=== PATIENT | male | born 1960 | race Caucasian/White ===

== ENCOUNTER 2020-10-26 18:28 | Emergency (ER) | payer BC, SELFPAY ==
[2020-10-26 18:36] VITALS: BP 164/90; PULSE 88; RESP 16; O2SAT 97; BMI 22.1
--- NOTE | 2020-10-26 18:54 | ECG_ITS ---
Test Reason : OD Blood Pressure : / mmHG Vent. Rate : 089 BPM Atrial Rate : 089 BPM P-R Int : 156 ms QRS Dur : 094 ms QT Int : 358 ms P-R-T Axes : 071 053 054 degrees QTc Int : 435 ms Normal sinus rhythm Possible Left atrial enlargement Borderline ECG When compared with ECG of 21-JUL-2011 14:09, No significant change was found Referred By: Caroline Torres Electronically Signed By:Freeman Temple
[2020-10-26 19:11] LABS: MANUAL DIFF FLAG NO
[2020-10-26 19:14] LABS: Basophils Percent Auto 0.3 % (0-2); Eosinophils Absolute Auto 0.2 X10*3/uL (0.0-0.4); Eosinophils Percent Auto 1.8 % (0-4); Hemoglobin 14.5 g/dl (14.0-18.0); Imm Gran Abs Auto 0.04 X10*3/uL (0.00-0.03); Imm Gran Pct Auto 0.4 % (0.0-0.4); Lymphocytes Absolute Auto 3.4 X10*3/uL (1.2-4.9); Lymphocytes Percent Auto 31.7 % (20-40); Mean Corpuscular HGB Conc 34.5 g/dl (31.0-36.0); Mean Corpuscular Volume 98.4 fL (80-98); Mean Platelet Volume 9.2 fL (9.4-12.4); Monocytes Absolute Auto 0.6 X10*3/uL (0.1-1.2); Monocytes Percent Auto 5.9 % (2-11); Neutrophils Absolute Auto 6.4 X10*3/uL (2.0-8.3); Neutrophils Percent Auto 59.9 % (45-73); Platelet Count 212 X10*3/uL (160-400); Red Blood Count 4.27 X10*6/uL (4.60-5.80); Red Cell Distribution Width 12.9 % (11.0-16.0); White Blood Count 10.6 X10*3/uL (4.8-10.8)
[2020-10-26 19:36] LABS: Ethanol 67 mg/dL
[2020-10-26 19:40] LABS: Alanine Aminotransferase 57 U/L (0-40); Albumin Level 4.5 g/dL (3.5-5.0); Alkaline Phosphatase 116 U/L (39-117); Anion Gap 14 (12-20); Aspartate Amino Transferase 42 U/L (5-37); Bilirubin Total 0.4 mg/dL (0.0-1.0); Blood Urea Nitrogen 19 mg/dL (9-16); Calcium 9.4 mg/dL (8.4-10.2); Carbon Dioxide 27 mmol/L (22-29); Chloride 102 mmol/L (96-108); Creatinine Clr Calc Pharmacy 68.7; Estimated Glomerular Filt Rate > 60; Glucose Random 133 mg/dL (60-115); Salicylate < 5.0 mg/dL (15-30); Sodium 139 mmol/L (135-145)
[2020-10-26 19:47] LABS: Acetaminophen LAB < 1 mcg/mL (<30)
--- NOTE | 2020-10-26 20:00 | MHC.RECOVSUP ---
? Reason for consult: Support o Current location: [facility] o Identified substance use concern: Alcohol - Overdose - Support ? Intervention: o Community resources provided o Harm reduction discussion ? Plan: o Patient to follow up with H after discharge ? Additional information:Patient denied using any opiates.. But did admitted to drinking alcohol.. Patient seem really confused to what happen to him.. Patient stated that he dose put on patches for his back but he doubts that could have anything to do with it.. Patient did want resources to help with the drinking..
--- NOTE | 2020-10-26 20:04 | ED_ITS ---
HPI - Overdose General Chief Complaint: Overdose Stated Complaint: FOUND UNRESPONSIVE,2 MG NARCAN,?SUBSTANCE ABUSE Time Seen by Provider: 10/26/20 18:54 Source: patient and EMS Mode of arrival: ambulatory Limitations: no limitations History of Present Illness HPI Narrative: Patient is a 60-year-old male with a past medical history of HIV infection who was BIBA after being found unresponsive in his yard by his family. Patient states he is unable to recall what happened, the last thing he knew he was pouring whiskey and to his rolling rock and mowing the lawn. He states he works today then gave blood at [employer] then came home made his drink and proceeded to mow the lawn. He remembers his mom asking him if he wanted hamburgers and then the next thing he knew, he was in ambulance. Per ambulance personnel, the family found him down outside, they started CPR and called 911. Ambulance personnel found him with a respiratory rate of to so they Narcan to him to which she had an immediate response of waking up. Patient states he had 2 lidocaine patches on but denies taking any opioids. Patient denies any pain anywhere and is unsure if he hit his head. He denies being on a blood thinner. Related Data Allergies Allergy/AdvReac Type Severity Reaction Status Date / Time cephalexin [From KEFLEX] Allergy Unknown UNKNOWN Unverified 02/11/20 14:43 Review of Systems Review of Systems: Yes all other systems are reviewed and are negative [facility] Past Medical History Medical History Chronic back pain Social History Social History Alcohol intake: never Patient Tobacco Use Status: Tobacco use Unknown Use of substances other than those prescribed or required for medical reasons: Unknown Advance Directives: No Advance Directives Information Provided: Yes Physical Exam Vital Signs: Vital Signs: Last Vital Signs Pulse 96 10/26/20 20:15 Resp 16 10/26/20 20:15 BP 177/90 H 10/26/20 20:15 Pulse Ox 98 10/26/20 20:15 Body Mass Index 22.1 Const: General: cooperative, healthy appearing, comfortable, no acute distress and well developed Orientation/consciousness: patient oriented x3 Limitations: no limitations HENMT: Head: Yes normal to inspection, Yes No palpable skull fracture present, Yes normocephalic, Yes atraumatic, No abrasion, No Wilkinson's sign, No contusion, No hematoma, No occipital foramen tenderness, No palpable skull fracture, No raccoon eyes and No scalp tenderness Ears: hearing grossly normal bilaterally General nose exam: Normal external nose present Face and sinus: Yes normal facial exam Eyes: General: appearance normal, both eyes and all related structures Neck: Neck: Yes normal visual inspection and Yes full ROM Resp: Effort & Inspection: normal respiratory effort and able to speak in complete sentences Auscultation: clear to auscultation bilaterally Cardio: Rate: regular rate Rhythm: regular rhythm Heart sounds: normal S1 and S2 GI: Inspection: Yes normal to inspection Palpation (GI): Soft to palpation and nontender Skin: General skin exam: no rashes or lesions noted Neuro: General: patient oriented x3 Extrem: General: Yes normal to inspection Course Course Course Narrative: Patient is a 60-year-old male with a past medical history of HIV infection who was BIBA after being found unresponsive in his yard by his family. Patient states he is unable to recall what happened, the last thing he knew he was pouring whiskey and to his rolling rock and mowing the lawn. Brent gonzales given Narcan by EMS personnel with immediate response. If will get EKG, UA, tox screen and labs. Reevaluation(s) Reevaluation #1: CBC, CMP WNL sans slightly elevated liver enzymes, ETOH 67, negative salicylates or acetaminophen. remainder of tox screen pending Time: 20:08 Reevaluation #2: Patient has no intention on hurting himself or anyone else, states he did not use any drugs, tox screen is negative. Patient is able to secure a safe ride home. Addiction counselor did speak with patient in the ED and gave him information on seeking detox the patient and is adamantly denying he used any drugs. Time: 21:18 MDM - Overdose Lab Data Attestation: I reviewed the patient's lab results. Result diagrams: 10/26/20 19:06 10/26/20 19:06 Labs: Lab Results 10/26/20 10/26/20 10/26/20 Range/Units 19:06 19:06 19:06 WBC 10.6 (4.8-10.8) X10*3/uL RBC 4.27 L (4.60-5.80) X10*6/uL Hgb 14.5 (14.0-18.0) g/dl Hct 42.0 (42-52) % MCV 98.4 H (80-98) fL MCH 34.0 H (27.0-33.0) pg MCHC 34.5 (31.0-36.0) g/dl RDW 12.9 (11.0-16.0) % Plt Count 212 (160-400) X10*3/uL MPV 9.2 L (9.4-12.4) fL Immature Gran % (Auto) 0.4 (0.0-0.4) % Neut % (Auto) 59.9 (45-73) % Lymph % (Auto) 31.7 (20-40) % [place] % (Auto) 5.9 (2-11) % Eos % (Auto) 1.8 (0-4) % Baso % (Auto) 0.3 (0-2) % Lymph # (Auto) 3.4 (1.2-4.9) X10*3/uL [place] # (Auto) 0.6 (0.1-1.2) X10*3/uL Eos # (Auto) 0.2 (0.0-0.4) X10*3/uL Baso # (Auto) 0.0 (0.0-0.2) X10*3/uL Abs Immat Gran (auto) 0.04 H (0.00-0.03) X10*3/uL Absolute Neuts (auto) 6.4 (2.0-8.3) X10*3/uL Absolute Nucleated RBC 0.000 (0.0-0.012) X10*3/uL Nucleated RBC % (auto) 0.0 (0.0-0.2) /100WBC Sodium 139 (135-145) mmol/L Potassium 4.0 (3.3-5.1) mmol/L Chloride 102 (96-108) mmol/L Carbon Dioxide 27 (22-29) mmol/L Anion Gap 14 (12-20) BUN 19 H (9-16) mg/dL Creatinine 1.10 (0.5-1.4) mg/dL Estim Creat Clear Calc 68.7 Estimated GFR > 60 Random Glucose 133 H (60-115) mg/dL Calcium 9.4 (8.4-10.2) mg/dL Total Bilirubin 0.4 (0.0-1.0) mg/dL AST 42 H (5-37) U/L ALT 57 H (0-40) U/L Alkaline Phosphatase 116 (39-117) U/L Total Protein 7.0 (6.5-8.0) g/dL Albumin 4.5 (3.5-5.0) g/dL Salicylates < 5.0 L (15-30) mg/dL Urine Opiates Screen (Not Detect) Acetaminophen < 1 (<30) mcg/mL Ur Barbiturates Screen (Not Detect) Ur Phencyclidine Scrn (Not Detect) Ur Amphetamines Screen (Not Detect) U Benzodiazepines Scrn (Not Detect) Urine Cocaine Screen (Not Detect) U Marijuana (THC) Screen (Not Detect) Ethyl Alcohol 67 mg/dL 10/26/20 Range/Units 20:36 WBC (4.8-10.8) X10*3/uL RBC (4.60-5.80) X10*6/uL Hgb (14.0-18.0) g/dl Hct (42-52) % MCV (80-98) fL MCH (27.0-33.0) pg MCHC (31.0-36.0) g/dl RDW (11.0-16.0) % Plt Count (160-400) X10*3/uL MPV (9.4-12.4) fL Immature Gran % (Auto) (0.0-0.4) % Neut % (Auto) (45-73) % Lymph % (Auto) (20-40) % [place] % (Auto) (2-11) % Eos % (Auto) (0-4) % Baso % (Auto) (0-2) % Lymph # (Auto) (1.2-4.9) X10*3/uL [place] # (Auto) (0.1-1.2) X10*3/uL Eos # (Auto) (0.0-0.4) X10*3/uL Baso # (Auto) (0.0-0.2) X10*3/uL Abs Immat Gran (auto) (0.00-0.03) X10*3/uL Absolute Neuts (auto) (2.0-8.3) X10*3/uL Absolute Nucleated RBC (0.0-0.012) X10*3/uL Nucleated RBC % (auto) (0.0-0.2) /100WBC Sodium (135-145) mmol/L Potassium (3.3-5.1) mmol/L Chloride (96-108) mmol/L Carbon Dioxide (22-29) mmol/L Anion Gap (12-20) BUN (9-16) mg/dL Creatinine (0.5-1.4) mg/dL Estim Creat Clear Calc Estimated GFR Random Glucose (60-115) mg/dL Calcium (8.4-10.2) mg/dL Total Bilirubin (0.0-1.0) mg/dL AST (5-37) U/L ALT (0-40) U/L Alkaline Phosphatase (39-117) U/L Total Protein (6.5-8.0) g/dL Albumin (3.5-5.0) g/dL Salicylates (15-30) mg/dL Urine Opiates Screen Not Detected (Not Detect) Acetaminophen (<30) mcg/mL Ur Barbiturates Screen Not Detected (Not Detect) Ur Phencyclidine Scrn Not Detected (Not Detect) Ur Amphetamines Screen Not Detected (Not Detect) U Benzodiazepines Scrn Not Detected (Not Detect) Urine Cocaine Screen Not Detected (Not Detect) U Marijuana (THC) Screen Not Detected (Not Detect) Ethyl Alcohol mg/dL ECG Data Attestation: I personally reviewed and interpreted this ECG as follows: ECG interpretation date: 10/26/20 ECG interpretation time: 21:22 Interpretation: NSR 89BPM, signed by Dr Read Discharge Plan Discharge Clinical Impression: Drug overdose Qualifiers: Encounter type: initial encounter Injury intent: accidental or unintentional Qualified Code(s): T50.901A - Poisoning by unspecified drugs, medicaments and biological substances, accidental (unintentional), initial encounter Patient Disposition: Home, Self-Care Instructions: Adult Overdose (ED) Additional Instructions: We have given you information for detox programs for alcohol and drug use. Mom also giving you Narcan to take home, please make sure your family is familiar and how to use it in case of emergency. I have also attached some other information regarding your accidental overdose.
[2020-10-26 20:15] VITALS: BP 177/90; PULSE 96; RESP 16; O2SAT 98
--- NOTE | 2020-10-26 20:17 | PC.NURSE ---
quality assurance coach at bedside- pt is calm and cooperative but is adamantly denying drug use.
[2020-10-26 21:04] LABS: Amphetamine Screen Urine Not Detected (Not Detect); Barbiturates, Urine Not Detected (Not Detect); Benzodiazepines Screen Urine Not Detected (Not Detect); Cannabinoid Screen Urine Not Detected (Not Detect); Cocaine Screen Urine Not Detected (Not Detect); Opiate Screen Urine Not Detected (Not Detect); Phencyclidine Screen Urine Not Detected (Not Detect)
[2020-10-26] MEDS: Naloxone HCl Nasal TAKE HOME 4 MG SPRAY NOSTRILALT (21:36)
== END 2020-10-26 21:40 | disposition home or self-care (01) ==
PROVIDERS: Physician Assistant; Emergency Provider Internal Medicine; PCP Family Medicine
DX: T50.901A Poisoning by unspecified drugs, medicaments and biological substances, accidental (unintentional), initial encounter (principal); R40.4 Transient alteration of awareness; Y92.017 Garden or yard in single-family (private) house as the place of occurrence of the external cause; F10.988 Alcohol use, unspecified with other alcohol-induced disorder; Y90.3 Blood alcohol level of 60-79 mg/100 ml; B20 Human immunodeficiency virus [HIV] disease
CPT/HCPCS: 80053; 80143; 80179; 80307; 82077; 85025; 93005; 99285